=== PATIENT | female | born 1970 | race Caucasian/White ===

== ENCOUNTER → 2016-05-29 | Outpatient (CLI) | payer BC | LOC: BMCIMAGING 07:43 | DX: Z12.31 Encounter for screening mammogram for malignant neoplasm of breast (principal) | CPT/HCPCS: G0202 ==

== ENCOUNTER → 2016-07-23 | Outpatient (CLI) | payer BC | LOC: FIMAGING 13:28 | PROVIDERS: ATTEND Orthopaedic Surgery Orthopaedic Surgery of the Spine | DX: M54.5 Low back pain (principal) ==

== ENCOUNTER → 2017-05-26 | Outpatient (CLI) | payer BC | LOC: BMCIMAGING 14:50 | PROVIDERS: ATTEND Family Medicine | DX: Z12.31 Encounter for screening mammogram for malignant neoplasm of breast (principal) ==

== ENCOUNTER → 2018-05-27 | Outpatient (CLI) | payer BC | LOC: BMCIMAGING 15:07 | PROVIDERS: ATTEND Family Medicine | DX: Z12.31 Encounter for screening mammogram for malignant neoplasm of breast (principal) ==